=== PATIENT | female | born 1950 | race Caucasian/White ===

== ENCOUNTER → 2019-12-01 | Outpatient (CLI) | payer MEDICARE ==
[2019-12-01 11:46] LABS: ALBUMIN 3.8 GM/DL (3.2-5.2); ALT/SGPT 25 U/L (12-78); BILIRUBIN,TOTAL 0.4 MG/DL (0.2-1.0); BLOOD UREA NITROGEN 26 MG/DL (7-18); CALCIUM LEVEL 9.3 MG/DL (8.8-10.2); CARBON DIOXIDE LEVEL 30 MEQ/L (21-32); CHLORIDE LEVEL 104 MEQ/L (98-107); CREATININE FOR GFR 0.78 MG/DL (0.55-1.30); GLOMERULAR FILTRATION RATE > 60.0 (>39); GLUCOSE, FASTING 130 MG/DL (70-100); POTASSIUM SERUM 4.7 MEQ/L (3.5-5.1); SODIUM LEVEL 139 MEQ/L (136-145); TOTAL PROTEIN 6.7 GM/DL (6.4-8.2)
[2019-12-01 15:23] LABS: HEMOGLOBIN A1c 7.4 %
== END ==
LOC: M PLALAB 07:59
DX: E11.65 Type 2 diabetes mellitus with hyperglycemia (principal)

== ENCOUNTER → 2020-12-05 | Outpatient (CLI) | payer MEDICARE ==
--- NOTE | 2020-12-05 12:24 | DEXAMM ---
INDICATION: M81.0 POSTMENOPAUSAL BONE LOSS. COMPARISON: 12/29/2018, 12/25/2016. TECHNIQUE: Bone density was measured using dual-energy x-ray absorptiometry (DEXA). FINDINGS: AP SPINE L1-L4 BMD 0.924 g/cm2 Young Adult T-Score -2.2 Age Matched Z-Score -0.5. LT FEMUR, TOTAL BMD 0.895 g/cm2 Young Adult T-Score -0.9 Age Matched Z-Score 0.7. LT NECK BMD 0.855 g/cm2 Young Adult T-Score -1.3 Age Matched Z-Score 0.5. RT FEMUR, TOTAL BMD 0.943 g/cm2 Young Adult T-Score -0.5 Age Matched Z-Score 1.1. RT NECK BMD 0.839 g/cm2 Young Adult T-Score -1.4 Age Matched Z-Score 0.4. IMPRESSION: There is low bone density of the spine. There is low bone density of the left hip. There is low bone density of the right hip. The density of the spine has increased 18.9% since the initial exam on 12/25/2016. The density of the spine decreased 3.0% since most recent exam on 12/29/2018. The density of the left hip has increased 1.6% since initial exam on 12/25/2016. The density of the left hip has decreased 7.3% since most recent exam on 12/29/2018. The density of the right hip has decreased 3.4% since the initial exam on 12/29/2018. FOLLOW-UP: Recommendation for the next bone density exam: 2 years. <Electronically signed by Ethan Miller > 12/05/20 [id number]
== END ==
LOC: M WHC 11:14
PROVIDERS: ATTEND Physician Assistant Medical
DX: M81.0 Age-related osteoporosis without current pathological fracture (principal); M85.88 Other specified disorders of bone density and structure, other site; M85.851 Other specified disorders of bone density and structure, right thigh; M85.852 Other specified disorders of bone density and structure, left thigh

== ENCOUNTER → 2022-06-06 | Outpatient (CLI) | payer MEDICARE | LOC: M WUC 10:55 | PROVIDERS: ATTEND Internal Medicine | DX: R05.9 Cough, unspecified (principal) ==

== ENCOUNTER → 2022-09-11 | Outpatient (CLI) | payer MEDICARE | LOC: M RADPRO 09:12 | PROVIDERS: ATTEND Internal Medicine Cardiovascular Disease | DX: G58.8 Other specified mononeuropathies (principal) ==

== ENCOUNTER → 2022-10-10 | Outpatient (CLI) | payer MEDICARE ==
[~2022-10-10] MED LIST: CALCCAP4 PO; DULC5TAB PO; GABA-1171 PO; JARD1TAB PO; LISI20TA37 PO; METF500T13 PO; ROSU20TA61 PO; novolog insulin pump
== END ==
LOC: M WHC 09-05 09:55
DX: Z12.31 Encounter for screening mammogram for malignant neoplasm of breast (principal)

== ENCOUNTER → 2022-10-21 | Outpatient (CLI) | payer MEDICARE ==
[~2022-10-21] MED LIST changes: -CALCCAP4 PO; -DULC5TAB PO; +E-Z-GAS II EFFERVESCENT PACKET (SODIUM BICARB./CITRIC ACID/SIMETHICONE) As Ordered ONE; +E-Z-HD 98% w/w 340GM SUSP BTL As Ordered ONE; +E-Z-PAQUE 96% w/w SUSP 176GM BTL As Ordered ONE; -GABA-1171 PO; -JARD1TAB PO; -LISI20TA37 PO; -METF500T13 PO; -ROSU20TA61 PO; -novolog insulin pump
== END ==
LOC: M RAD 08:50
PROVIDERS: ATTEND Internal Medicine Gastroenterology
DX: R13.10 Dysphagia, unspecified (principal)

== ENCOUNTER 2022-11-19 10:15 | Day surgery (SDC) | payer MEDICARE ==
[~2022-11-19] VITALS: Ht 161.3 cm; Wt 73.7 kg
[~2022-11-19 10:15] MED LIST changes: +CALCCAP4 PO; +DULC5TAB PO; -E-Z-GAS II EFFERVESCENT PACKET (SODIUM BICARB./CITRIC ACID/SIMETHICONE) As Ordered ONE; -E-Z-HD 98% w/w 340GM SUSP BTL As Ordered ONE; -E-Z-PAQUE 96% w/w SUSP 176GM BTL As Ordered ONE; +GABA-1171 PO; +JARD1TAB PO; +LIDOCAINE 2% 100MG/5ML SDV (FOR ANES.) As Ordered ONE; +LISI20TA37 PO; +METF500T13 PO; +NS 1,000 ML IV ONE; +ROSU20TA61 PO; +fentaNYL 100 MCG/2 ML INJECTION As Ordered ONE; +novolog insulin pump; +propofoL 500 MG/50 ML VIAL As Ordered ONE
[2022-11-19 11:14] VITALS: TEMP 97.1
[2022-11-19 11:38] VITALS: BP 103/55; O2SAT 95
== END 2022-11-19 11:47 | disposition home or self-care (01) ==
LOC: M OPP 10:15
PROVIDERS: ATTEND Internal Medicine Gastroenterology
DX: K22.2 Esophageal obstruction (principal); R13.10 Dysphagia, unspecified; Z79.02 Long term (current) use of antithrombotics/antiplatelets; Z79.4 Long term (current) use of insulin; Z79.891 Long term (current) use of opiate analgesic; Z79.899 Other long term (current) drug therapy; Z88.5 Allergy status to narcotic agent; Z91.041 Radiographic dye allergy status
CPT/HCPCS: 43249; J3010

== ENCOUNTER → 2022-11-29 | Outpatient (CLI) | payer MEDICARE ==
[~2022-11-29] MED LIST changes: -LIDOCAINE 2% 100MG/5ML SDV (FOR ANES.) As Ordered ONE; -NS 1,000 ML IV ONE; -fentaNYL 100 MCG/2 ML INJECTION As Ordered ONE; -propofoL 500 MG/50 ML VIAL As Ordered ONE
== END ==
LOC: M RAD 09:05
PROVIDERS: ATTEND Nurse Practitioner Adult Health
DX: R06.02 Shortness of breath (principal); J98.6 Disorders of diaphragm

== ENCOUNTER → 2023-01-01 | Outpatient (CLI) | payer MEDICARE | LOC: M WHC 10:13 | PROVIDERS: ATTEND Internal Medicine | DX: M81.0 Age-related osteoporosis without current pathological fracture (principal); M85.89 Other specified disorders of bone density and structure, multiple sites ==

== ENCOUNTER → 2023-10-13 | Outpatient (CLI) | payer MEDICARE | LOC: M WHC 11:04 | PROVIDERS: ATTEND Internal Medicine | DX: Z12.31 Encounter for screening mammogram for malignant neoplasm of breast (principal) ==

== ENCOUNTER → 2023-12-01 | Outpatient (CLI) | payer MEDICARE | LOC: M RAD 12:24 | PROVIDERS: ATTEND Nurse Practitioner Adult Health | DX: R91.8 Other nonspecific abnormal finding of lung field (principal); R91.1 Solitary pulmonary nodule; E04.1 Nontoxic single thyroid nodule ==

== ENCOUNTER → 2023-12-02 | Outpatient (CLI) | payer MEDICARE | LOC: M EKG 09:05 | PROVIDERS: ATTEND Internal Medicine Cardiovascular Disease | DX: R00.2 Palpitations (principal); R06.02 Shortness of breath; I34.0 Nonrheumatic mitral (valve) insufficiency; G47.33 Obstructive sleep apnea (adult) (pediatric) ==

== ENCOUNTER → 2023-12-10 | Outpatient (CLI) | payer MEDICARE | LOC: M SLEEP HO 10:06 | PROVIDERS: ATTEND Internal Medicine Cardiovascular Disease | DX: G47.33 Obstructive sleep apnea (adult) (pediatric) (principal) ==

== ENCOUNTER → 2024-03-08 | Outpatient (CLI) | payer MEDICARE ==
[~2024-03-08] MED LIST changes: -ROSU20TA61 PO; +ROSU20TA86 PO
== END ==
LOC: M SLEEP 20:00
PROVIDERS: ATTEND Nurse Practitioner Adult Health
DX: G47.33 Obstructive sleep apnea (adult) (pediatric) (principal)

== ENCOUNTER → 2024-04-25 | Outpatient (CLI) | payer MEDICARE ==
[~2024-04-25] MED LIST changes: +ALBU8.5H INH; +OXYB10TA23 PO
== END ==
LOC: M SLEEP 20:00
PROVIDERS: ATTEND Nurse Practitioner Adult Health
DX: G47.33 Obstructive sleep apnea (adult) (pediatric) (principal)

== ENCOUNTER → 2024-04-30 | Outpatient (CLI) | payer MEDICARE ==
[2024-04-30 11:48] LABS: HEMATOCRIT 45.1 % (36.0-47.0); HEMOGLOBIN 14.7 g/dl (12.0-15.5); MEAN CORPUSCULAR HEMOGLOBIN 29.1 pg (27.0-33.0); MEAN CORPUSCULAR HGB CONC 32.6 g/dl (32.0-36.5); MEAN CORPUSCULAR VOLUME 89.1 fl (80.0-96.0); PLATELET COUNT, AUTOMATED 241 10^3/uL (150-450); RED BLOOD COUNT 5.06 10^6/uL (4.00-5.40); WHITE BLOOD COUNT 5.8 10^3/uL (4.0-10.0)
[2024-04-30 12:13] LABS: ALBUMIN 3.4 G/DL (3.2-5.2); ALKALINE PHOSPHATASE 114 U/L (35-104); ALT/SGPT 24 U/L (7.0-40); AST/SGOT 17 U/L (<34); BILIRUBIN,TOTAL 0.5 MG/DL (0.3-1.2); BLOOD UREA NITROGEN 28 MG/DL (9-23); CALCIUM LEVEL 9.1 MG/DL (8.3-10.6); CARBON DIOXIDE LEVEL 26 MMOL/L (20-31); CHLORIDE LEVEL 108 MMOL/L (98-107); CREATININE FOR GFR 0.72 MG/DL (0.55-1.30); GLOMERULAR FILTRATION RATE > 60.0 (>39); GLUCOSE, FASTING 137 MG/DL (74-106); POTASSIUM SERUM 4.4 MMOL/L (3.5-5.1); SODIUM LEVEL 141 MMOL/L (136-145); TOTAL PROTEIN 6.3 G/DL (5.7-8.2)
== END ==
LOC: M RAD 09:50
PROVIDERS: ATTEND Urology
DX: N39.46 Mixed incontinence (principal)

== ENCOUNTER 2024-05-10 07:05 | Day surgery (SDC) | payer MEDICARE ==
[~2024-05-10] VITALS: Ht 162.6 cm; Wt 75.7 kg
[2024-05-10] MEDS ORDERED: NS 1,000 ML IV SCH (07:20)
[2024-05-10] MEDS ORDERED: ONDANSETRON 4MG 2ML VIAL As Ordered ONE (07:47)
[2024-05-10] MEDS ORDERED: fentaNYL 100 MCG/2 ML INJECTION As Ordered ONE (07:47)
[2024-05-10] MEDS ORDERED: LIDOCAINE 2% 100MG/5ML SDV (FOR ANES.) As Ordered ONE (07:47)
[2024-05-10] MEDS ORDERED: ACETAMINOPHEN 1000MG/100ML IV BAG As Ordered ONE (07:47)
[2024-05-10] MEDS ORDERED: propofoL 200 MG/20 ML VIAL As Ordered ONE (07:47)
[2024-05-10] MEDS: ceFAZolin SOD 2 GM in IV 1 EA IV ONE (08:25)
[2024-05-10] MEDS ORDERED: fentaNYL 100 MCG/2 ML INJECTION IV PRN (08:55)
[2024-05-10] MEDS ORDERED: oxyCODONE 5MG TAB PO PRN (08:55)
[2024-05-10] MEDS ORDERED: NS 250 ML IV SCH (08:55)
[2024-05-10] MEDS ORDERED: ONDANSETRON 4MG 2ML VIAL IV PRN (08:55)
[2024-05-10] MEDS ORDERED: HYDROMORPHONE HCL 0.5 MG/ 0.5 ML SYRINGE IV PRN (08:55)
[2024-05-10 09:21] VITALS: BP 134/69; TEMP 96.3; O2SAT 98
== END 2024-05-10 09:44 | disposition home or self-care (01) ==
LOC: M SDC 07:05
PROVIDERS: ATTEND Urology
DX: N39.3 Stress incontinence (female) (male) (principal); I10 Essential (primary) hypertension; E78.5 Hyperlipidemia, unspecified; E11.9 Type 2 diabetes mellitus without complications; K21.9 Gastro-esophageal reflux disease without esophagitis; K57.92 Diverticulitis of intestine, part unspecified, without perforation or abscess without bleeding; K44.9 Diaphragmatic hernia without obstruction or gangrene; Z79.52 Long term (current) use of systemic steroids; K22.2 Esophageal obstruction; G47.33 Obstructive sleep apnea (adult) (pediatric); Z79.899 Other long term (current) drug therapy; Z91.041 Radiographic dye allergy status; Z88.5 Allergy status to narcotic agent
CPT/HCPCS: 51715; A4215; A4649; J0131; J0690; J1100; J2405; J3010; L8606

== ENCOUNTER → 2024-07-05 | Outpatient (REF) | payer MEDICARE | LOC: M LAB REF 12:21 | PROVIDERS: ATTEND Internal Medicine | DX: G60.9 Hereditary and idiopathic neuropathy, unspecified (principal) ==

== ENCOUNTER → 2024-12-20 | Outpatient (CLI) | payer MEDICARE | LOC: M PLAIMG 07:11 | PROVIDERS: ATTEND Nurse Practitioner Adult Health | DX: R91.8 Other nonspecific abnormal finding of lung field (principal); J98.6 Disorders of diaphragm ==

== ENCOUNTER → 2024-12-23 | Outpatient (REF) | payer MEDICARE | LOC: M LAB REF 12:14 | PROVIDERS: ATTEND Internal Medicine | DX: N39.3 Stress incontinence (female) (male) (principal) ==

== ENCOUNTER → 2025-01-21 | Outpatient (CLI) | payer MEDICARE | LOC: M SOG 06:51 | PROVIDERS: ATTEND Neuromusculoskeletal Medicine, Sports Medicine | DX: G56.03 Carpal tunnel syndrome, bilateral upper limbs (principal) ==

== ENCOUNTER → 2025-02-03 | Outpatient (CLI) | payer MEDICARE | LOC: M WHC 10:36 | PROVIDERS: ATTEND Internal Medicine | DX: M85.88 Other specified disorders of bone density and structure, other site (principal) ==

== ENCOUNTER → 2025-02-22 | Outpatient (CLI) | payer MEDICARE | LOC: M WUC 09:48 | DX: R05.9 Cough, unspecified (principal) ==

== ENCOUNTER 2025-03-08 10:48 | Day surgery (SDC) | payer MEDICARE ==
[~2025-03-08] VITALS: Ht 160 cm; Wt 75.7 kg
[~2025-03-08 10:48] MED LIST changes: +LIDOCAINE 2% 100 MG/5 ML SDV (FOR ANES.) As Ordered ONE; +MYRB50TA PO; +NEUR300C PO
[2025-03-08] MEDS ORDERED: ONDANSETRON 4MG 2ML VIAL As Ordered ONE (10:52)
[2025-03-08] MEDS ORDERED: dexAMETHasone 4 MG/ML 1 ML VIAL As Ordered ONE (11:02)
[2025-03-08] MEDS ORDERED: LR 1,000 ML IV SCH (11:10)
[2025-03-08] MEDS ORDERED: ROCURONIUM BROMIDE 50MG/5ML VIAL As Ordered ONE (12:23)
[2025-03-08] MEDS ORDERED: PHENYLephrine 500MCG 5ML (100MCG/ML) SYRINGE As Ordered ONE (12:33)
[2025-03-08] MEDS ORDERED: ACETAMINOPHEN 1000MG/100ML IV BAG As Ordered ONE (12:39)
[2025-03-08] MEDS: ceFAZolin SOD 2 GM IV ONCE IV ONE (12:45)
[2025-03-08] MEDS ORDERED: SUGAMMADEX SODIUM 500 MG/5 ML VIAL As Ordered ONE (12:53)
[2025-03-08] MEDS: LIDOCAINE 1% SDV 30 ML VIAL As Ordered ONE (12:59)
[2025-03-08] MEDS ORDERED: ONDANSETRON 4MG 2ML VIAL IV PRN (13:10)
[2025-03-08] MEDS ORDERED: MORPHINE 4 MG/ML 1 ML VIAL IV PRN (13:10)
[2025-03-08 14:37] VITALS: BP 127/55; TEMP 97; O2SAT 99
== END 2025-03-08 14:50 | disposition home or self-care (01) ==
LOC: M SDC 10:48
PROVIDERS: ATTEND Neuromusculoskeletal Medicine, Sports Medicine
DX: G56.02 Carpal tunnel syndrome, left upper limb (principal); I10 Essential (primary) hypertension; E10.9 Type 1 diabetes mellitus without complications; E78.00 Pure hypercholesterolemia, unspecified; G47.30 Sleep apnea, unspecified; Z79.4 Long term (current) use of insulin; Z79.899 Other long term (current) drug therapy; Z79.84 Long term (current) use of oral hypoglycemic drugs; Z96.41 Presence of insulin pump (external) (internal); Z90.710 Acquired absence of both cervix and uterus; R32 Unspecified urinary incontinence; K21.9 Gastro-esophageal reflux disease without esophagitis; Z85.828 Personal history of other malignant neoplasm of skin
CPT/HCPCS: 64721; J0131; J0688; J1100; J2371; J2405; J3010

== ENCOUNTER → 2025-03-23 | Outpatient (REF) | payer MEDICARE ==
[~2025-03-23] MED LIST changes: -LIDOCAINE 2% 100 MG/5 ML SDV (FOR ANES.) As Ordered ONE
== END ==
LOC: M LAB REF 17:26
PROVIDERS: ATTEND Internal Medicine
DX: G60.9 Hereditary and idiopathic neuropathy, unspecified (principal)

== ENCOUNTER 2025-04-17 13:06 | Emergency (ER) | payer MEDICARE ==
[~2025-04-17] VITALS: Ht 162.6 cm; Wt 76.8 kg
[2025-04-17 13:42] LABS: BASO # 0.1 10^3/uL (0.0-0.2); BASO % 0.7 % (0.0-1.0); EOS # 0.2 10^3/uL (0.0-0.5); EOS % 2.4 % (0.0-3.0); LYMPH # 2.0 10^3/uL (1.5-5.0); LYMPH % 29.0 % (24.0-44.0); MONO # 0.5 10^3/uL (0.0-0.8); MONO % 7.3 % (2.0-8.0); NEUTROPHILS # 4.1 10^3/uL (1.5-8.5); NEUTROPHILS % 60.3 % (36.0-66.0); PLATELET COUNT, AUTOMATED 244 10^3/uL (150-450)
[2025-04-17 14:03] LABS: INR 0.87
[2025-04-17 14:09] LABS: CK-MB VALUE MASS 1.9 NG/ML (<3.6)
[2025-04-17 14:12] LABS: ALT/SGPT 28 U/L (7.0-40); AST/SGOT 22 U/L (<34); CALCIUM LEVEL 8.8 MG/DL (8.3-10.6); CARBON DIOXIDE LEVEL 26 MMOL/L (20-31); CHLORIDE LEVEL 109 MMOL/L (98-107); CPK CREATINE PHOSPHOKINASE 61 U/L (34-145); CREATININE FOR GFR 0.70 MG/DL (0.55-1.30); GLOMERULAR FILTRATION RATE 89.6 (>39); MB/CK RELATIVE INDEX 3.11 (< OR =4); POTASSIUM SERUM 3.9 MMOL/L (3.5-5.1); SODIUM LEVEL 144 MMOL/L (136-145)
[2025-04-17 14:13] LABS: FREE T4 1.08 NG/DL (0.89-1.76)
[2025-04-17 15:13] LABS: CK-MB VALUE MASS 1.8 NG/ML (<3.6)
[2025-04-17 15:17] LABS: CPK CREATINE PHOSPHOKINASE 61.0 U/L (34-145); MB/CK RELATIVE INDEX 2.95 (< OR =4)
[2025-04-17 16:59] LABS: CK-MB VALUE MASS 2.4 NG/ML (<3.6)
[2025-04-17 17:01] LABS: CPK CREATINE PHOSPHOKINASE 51.0 U/L (34-145); MB/CK RELATIVE INDEX 4.7 (< OR =4)
[2025-04-17] MEDS ORDERED: ASPI81TA26 PO (17:14)
[2025-04-17] MEDS ORDERED: ASPIRIN 325 MG TAB PO ONE (17:15)
[2025-04-17 17:29] VITALS: BP 123/56; TEMP 97.8; O2SAT 99
== END 2025-04-17 17:31 | disposition home or self-care (01) ==
LOC: EDBD 13:06 → M ED 13:06
DX: R07.9 Chest pain, unspecified (principal); E78.5 Hyperlipidemia, unspecified; I10 Essential (primary) hypertension; E11.9 Type 2 diabetes mellitus without complications; F10.10 Alcohol abuse, uncomplicated; Z91.041 Radiographic dye allergy status; Z88.5 Allergy status to narcotic agent; Z79.52 Long term (current) use of systemic steroids; Z79.899 Other long term (current) drug therapy; Z79.82 Long term (current) use of aspirin